=== PATIENT | male | born 1950 | race African-American/Black ===

== ENCOUNTER 2017-08-06 00:57 | Inpatient (IN) | payer OTHER ==
--- NOTE | 2017-07-21 13:11 | History & Physical Pre-Op ---
Mariajose Daniel 07/21/17 1306: General Information and HPI MD Statement: I have seen and personally examined FERNANDO VIRGEN and documented this H&P. The patient is a 66 year old M who presented with a patient stated chief complaint of LBP, radiating to left buttock, hip, and left foot with numbness/ tingling/weakness. Source of Information: patient, old records Exam Limitations: no limitations History of Present Illness: Fernando is a 66-year-old gentleman who is complaining of progressively worsening low back pain, radiating to his left buttock, left hip, and into his left foot with associated numbness/tingling, and weakness in his lower extremities. He does occasionally experience a cramp in his right lower extremity which he describes as "locking up". He states these are infrequent. Fernando describes his pain as a 6-7/10 in intensity with an occasional 10/10 in intensity. He does admit to nocturia and decreased stream but no obvious incontinence or loss of bowel or bladder sensation. He does have difficulty sleeping due to his discomfort. Fernando's recent imaging shows severe foraminal and central stenosis from L2-S1, worse at L3-4 and L4-5 with a ganglion cyst due to facet arthropathy. Due to the fact that Fernando has progressively worsening pain and weakness in his lower extremities, he wants nothing more to do with nonsurgical treatment. He has been consented for a revision posterior lumbar decompression and fusion L2-S1 with instrumentation and iliac crest bone grafting on August 06, 2017. Allergies/Medications Allergies: Coded Allergies: No Known Allergies (08/05/17) Home Med list Acetaminophen (Tylenol Extra Strength) 500 MG TABLET 1 TAB PO TID PRN pain ( Reported) Hydrochlorothiazide 25 MG TABLET 1 TAB PO DAILY HTN (Reported) Oxycodone HCl 10 MG TABLET 1 TAB PO BID PAIN (Reported) Compliance With Home Meds: GOOD Past History Medical History Blood Transfusion Hx: No Neurological: NONE EENT: NONE Cardiovascular: hypertension Respiratory: NONE Gastrointestinal: NONE Hepatic: NONE Renal: benign prost hyperplasia, neurogenic bladder (suspected) Musculoskeletal: chronic back pain, disk herniation, degen joint disease, osteoarthritis, sciatica, spinal stenosis Psychiatric: chronic pain disorder Endocrine: NONE Blood Disorders: NONE Cancer(s): NONE DIRECTOR OF SAFETY/Reproductive: NONE Isolation History: Standard Pneumonia Vaccine: 02/26/15 Influenza Vaccine: 02/27/15 Surgical History Pertinent Surgical History: laminectomy, spinal fusion, s/p Rev. PLDF left L3-S1 with IC[facility] 02/2015, s/p ACDF C5-7 2011, s/p PLDF L3-S1 with ICBG 2011 Past Family/Social History Family History Relations & Conditions if any MOTHER (spinal stenosis). , Age 80. FATHER (Alive and Well). Age 90. Psychosocial History Where Do You Live? Home Who Do You Live With? self Services at Home None Primary Language: Yakut Smoking Status: Light Tobacco Smoker (2-3 cig/day) ETOH Use: occasional use (Guinness Allison) Illicit Drug Use: marijuana Other Social History: with children -Renetta Employment History Employment: Disability Profession/Employer: [employer] Review of Systems Review of Systems: Remarkable for the above complaints. Exam & Diagnostic Data Last 24 Hrs of Vital Signs/I&O Height: 5' 7" Weight: 135lbs. Physical Exam General Appearance Alert, Oriented X3, Cooperative, No Acute Distress Skin No Rashes, No Breakdown, No Significant Lesion HEENT Atraumatic, PERRLA, EOMI, Mucous Membr. moist/pink Neck Supple, No JVD, No thryomegaly, +2 Carotid Pulse wo Bruit Lymphatic Cervical nl Cardiovascular Regular Rate, Normal S1, Normal S2, No Murmurs Lungs Clear to Auscultation Abdomen Normal Bowel Sounds, Soft, No Tenderness Neurological sluggish left patellar reflex, atrophy of left quad and gastroc, - SLR Extremities No Clubbing, No Cyanosis, No Edema, Normal Pulses Vascular Normal Pulses Assessment/Plan Assessment/Plan: Assessment: Severe spinal stenosis L2-S1, worse at L3-4 and L4-5 with a ganglion cyst due to facet arthropathy. Plan: Fernando is scheduled for a revision posterior lumbar decompression and fusion L2-S1 with instrumentation and iliac crest bone grafting on 08/06/2017. We discussed the procedure in full detail as well as the pre-and postoperative course, follow-up care, and anticipated recovery. We also discussed the do's and don'ts and postoperative discharge instructions. We discussed the benefits, alternatives, and risks, not to exclude, , paralysis, infection, bleeding, continued pain, failure of the surgery, need for future surgery, DVT, vascular injury, CSF leak, etc., and given these risks, he still wishes to proceed. We have referred Fernando back to Dr. Gill, his primary care physician for preoperative clearance. Any changes in this patient's plan is based on this patient's outpatient clinical presentation. As Ranked By This Provider Problem List: 1. Hypertension Copies To: Marlon BOLDEN,Bowen Attending MD Review Statement Attending Statement Attending MD Statement: examined this patient, discuss w/resident/PA/BDR, agreed w/resident/PA/BDR, reviewed images
[~2017-08-06] VITALS: Ht 170.2 cm; Wt 63.5 kg
[~2017-08-06 00:57] MED LIST: ADVIL200 MG PO; HYDROCHLOROTHIA25 M1 PO; HYDRODIURIL 2525 MG PO; OXYCODONE HCL10 M2 PO; OXYCODONE HCL15 MG PO; OXYCODONE HYDRO10 M1 PO; TYLENOL EXTRA500 M2 PO
--- NOTE | 2017-08-06 15:49 | Patient Discharge Instructions ---
Acute Coronary Syndrome Inclusion Criteria At DC or during hospital stay patient has or had the following: ACS DIAGNOSIS No Discharge Core Measures Meds if any: Prescribed or Continued at Discharge Meds if any: NOT Prescribed or Continued at Discharge Congestive Heart Failure Inclusion Criteria At DC or during hospital stay patient has or had the following: CHF DIAGNOSIS No Discharge Core Measures Meds if any: Prescribed or Continued at Discharge Meds if any: NOT Prescribed or Continued at Discharge Cerebrovascular accident Inclusion Criteria At DC or during hospital stay patient has or had the following: CVA/TIA Diagnosis No Discharge Core Measures Meds if any: Prescribed or Continued at Discharge Meds if any: NOT Prescribed or Continued at Discharge Venous thromboembolism Inclusion Criteria VTE Diagnosis No VTE Type NONE VTE Confirmed by (Test) NONE Discharge Core Measures - Per Current guidelines, there needs to be overlap - treatment for the first 5 days of Warfarin therapy. - If discharged on Warfarin prior to 5 days of - overlap therapy, the patient will need to be - assessed for post discharge needs including - *Post discharge parental anticoagulation - *Warfarin and/or parental anticoagulation education - *Follow up date to check INR post discharge At least 5 days overlap therapy as Inpatient No Meds if any: Prescribed or Continued at Discharge Note: Overlap Therapy is Warfarin and Anticoagulant Meds if any: NOT Prescribed or Continued at Discharge
[2017-08-06] MEDS ORDERED: DULCOLAX10 M1 RC (15:54)
[2017-08-06] MEDS ORDERED: OXYCONTIN10 M1 PO (15:54)
[2017-08-06] MEDS ORDERED: COLACE100 M1 PO (15:54)
[2017-08-06] MEDS ORDERED: MILK OF MA400 MG/52 PO (15:54)
[2017-08-06] MEDS ORDERED: TYLENOL EXTRA500 M2 PO (15:54)
[2017-08-06] MEDS ORDERED: ROXICODONE30 M1 PO (15:54)
[2017-08-06] MEDS ORDERED: VITAMIN D31000 UNI2 PO (15:54)
[2017-08-06] MEDS ORDERED: MULTIVITAMINS1 EAC9 PO (15:54)
[2017-08-06] MEDS ORDERED: OS-CAL 500+D31 EAC1 PO (15:54)
[2017-08-06 15:58] LABS: ABSOLUTE BASOPHIL COUNT 0 /CUMM (0.0-0.2); ABSOLUTE EOSINOPHIL COUNT 0 /CUMM (0.0-0.7); ABSOLUTE GRANULOCYTE CT 9.8 /CUMM (1.4-6.5); ABSOLUTE LYMPH COUNT 0.7 /CUMM (1.2-3.4); ABSOLUTE MONOCYTE COUNT 0 /CUMM (0.10-0.60); BASOPHIL % 0 % (0.0-2.0); EOSINOPHIL % 0.1 % (0-5); GRANULOCYTE % 92.6 % (42.2-75.2); HEMATOCRIT 38.5 % (42-52); MEAN CORPUSCULAR HGB 31.1 PG (27.0-31.0); MEAN CORPUSCULAR HGB CONC 32.7 G/DL (33.0-37.0); MEAN CORPUSCULAR VOLUME 94.9 FL (80.0-94.0); MEAN PLATELET VOLUME 8.4 FL (7.4-10.4); PLATELET COUNT 188 /CUMM (130-400); RBC DISTRIBUTION WIDTH 14.3 % (11.5-14.5); RED BLOOD CELL CT 4.06 /CUMM (4.70-6.10); WHITE BLOOD CELL COUNT 10.5 /CUMM (4.8-10.8)
[2017-08-06 16:10] VITALS: BP 160/100
--- NOTE | 2017-08-06 16:17 | RADIOLOGY REPORT ---
EXAMINATION: XR LUMBAR SPINE, C-arm imaging CLINICAL INFORMATION: L2-S1 laminectomy COMPARISON: None TECHNIQUE: C-arm imaging. Fluoroscopy time: 0 seconds Images: 1 Dose: 0.554 mGy FINDINGS: Lateral spot view over the lower lumbar spine. There is a orthopedic probe pointing to the L4-L5 disc level. Degenerative spondylosis of spine with multilevel disc height narrowing and endplate spurring of the vertebrae. IMPRESSION: Lateral spot view of lumbar spine with marker at L4-L5 disc level.
--- NOTE | 2017-08-06 18:13 | PN- Orthopedic ---
Subjective Subjective: Post op check: No acute post operative events. Patient tolerated procedure well. Is sitting at edge of bed eating dinner with no difficulty presently. Had pain in PACU in the immediate post operative period, responded well to dilaudid. Denies chest pain, shortness of breath and difficulty breathing. Denies nausea and vomitting. Has yet to void. Objective Vital Signs and I&Os Vital Signs Date Time Temp Pulse Resp B/P B/P Pulse O2 O2 Flow FiO2 Mean Ox Delivery Rate 08/06 1610 98.2 57 18 160/100 99 Nasal 2.0L Cannula Intake & Output 08/06 1600 08/06 0800 08/06 0000 08/05 1600 08/05 0800 08/05 0000 Intake Total Output Total Balance Patient 140 lb Weight Physical Exam: General: Alert and oriented x3, no acute distress Cardiac: R RR, s1s2 Pulm: CTA bilaterally, non-labored respiratory effort Abd: Non-tender, non-distended Extremities: Moves all extremities, distal sensation grossly intact. Skin warm and well perfused. Bialteral calves soft and non-tender Surgical site; Lumbar spine, dressing dry and intact. Assessment/Plan Assessment/Plan This is a 66 year old male, POD 0, s/p lumbar discectomy and fusion. PMH signficant for htn and chronic pain Continue home hctz Continue home oxycontin Add prn oxycodone and IV dilauded for breakthrough pain OOB encouraged Incentive spirometry encouraged Ancef for abx ppx Mechanical dvt ppx POC discussed with Mariajose Botello PA-c Core Measures Venous Thromboembolism VTE Risk Factors Surgery No Mechanical VTE Prophylaxis d/t N/A MechProphylax Ordered No VTE Pharm Prophylaxis d/t Surgical Contraindication
[2017-08-06 18:30] VITALS: BP 162/98
[2017-08-06 20:05] VITALS: BP 165/102
[2017-08-06 21:00] VITALS: BP 168/90
[2017-08-06 22:26] VITALS: BP 144/90
[2017-08-07 02:15] VITALS: BP 152/86
[2017-08-07 06:42] VITALS: BP 163/102
--- NOTE | 2017-08-07 08:48 | PN- Orthopedic ---
Subjective Subjective: OOB ambulating with PT without any difficulty Pain is controlled Did not sleep well last night but nothing specific, otherwise without complaints Objective Vital Signs and I&Os Vital Signs Date Time Temp Pulse Resp B/P B/P Pulse O2 O2 Flow FiO2 Mean Ox Delivery Rate 08/07 0642 98.4 60 18 163/102 99 Room Air 08/07 0215 98.4 74 18 152/86 97 Room Air 08/06 2226 98.4 74 20 144/90 98 Room Air 08/06 2100 62 168/90 08/06 2004 98.7 70 20 165/102 98 Room Air 08/06 1830 98.3 102 20 162/98 97 Room Air 08/06 1610 98.2 57 18 160/100 99 Nasal 2.0L Cannula Intake & Output 08/07 0800 08/07 0000 08/06 1600 08/07 0700 08/06 0000 Intake Total 620 800 Output Total 500 550 Balance -500 70 800 Intake, IV 300 300 Intake, Oral 320 500 Output, Urine 500 550 Physical Exam: bp has been running high 160's systolic, low 100's diastolic Pt did not take htn meds pre-op General: alert and oriented times three Chest: clear bilaterally, rrr Abd: soft, good bs Ext: warm, no edema, normosensate, good 5/5 INGRIS BLE, calves nontender bilaterally Wd: dressing changed, lulu intact, no erythema or drainage Assessment/Plan Assessment/Plan This is a 66 year old male, POD 1, s/p lumbar discectomy and fusion. PMH signficant for htn and chronic pain Will review home meds restart all htn medications continue current pain regimen dc planning fu cbc this am pending alps for dvt ppx Core Measures Venous Thromboembolism VTE Risk Factors Surgery No Mechanical VTE Prophylaxis d/t N/A MechProphylax Ordered No VTE Pharm Prophylaxis d/t Surgical Contraindication
[2017-08-07 09:05] LABS: ABSOLUTE BASOPHIL COUNT 0 /CUMM (0.0-0.2); ABSOLUTE EOSINOPHIL COUNT 0 /CUMM (0.0-0.7); ABSOLUTE GRANULOCYTE CT 12.9 /CUMM (1.4-6.5); ABSOLUTE LYMPH COUNT 1.1 /CUMM (1.2-3.4); ABSOLUTE MONOCYTE COUNT 0.8 /CUMM (0.10-0.60); BASOPHIL % 0 % (0.0-2.0); EOSINOPHIL % 0 % (0-5); GRANULOCYTE % 87.4 % (42.2-75.2); HEMATOCRIT 34.7 % (42-52); MEAN CORPUSCULAR HGB 31.6 PG (27.0-31.0); MEAN CORPUSCULAR HGB CONC 33.7 G/DL (33.0-37.0); MEAN CORPUSCULAR VOLUME 93.7 FL (80.0-94.0); PLATELET COUNT 189 /CUMM (130-400); RBC DISTRIBUTION WIDTH 14.2 % (11.5-14.5); WHITE BLOOD CELL COUNT 14.8 /CUMM (4.8-10.8)
[2017-08-07] MEDS ORDERED: VASOTEC10 MG PO (10:16)
[2017-08-07] MEDS ORDERED: ENALAPRIL MALEA20 M1 PO (10:17)
[2017-08-07 14:26] VITALS: BP 162/98
--- NOTE | 2017-08-07 14:31 | PN- Orthopedic ---
Subjective Subjective: Patient c/o expected postop incisional pain. No preop left leg pain and no new radicular symptoms. Tingling in left foot resolved. Patient ambulated with PT. Robb. po. No headaches or dizziness. No fever/chills. Voiding without difficulty. +flatus. Review of Systems: Remarkable for the above complaints. Objective Vital Signs and I&Os Vital Signs Date Time Temp Pulse Resp B/P B/P Pulse O2 O2 Flow FiO2 Mean Ox Delivery Rate 08/07 1353 86 162/98 08/07 0642 98.4 60 18 163/102 99 Room Air 08/07 0215 98.4 74 18 152/86 97 Room Air 08/06 2226 98.4 74 20 144/90 98 Room Air 08/06 2100 62 168/90 08/06 2004 98.7 70 20 165/102 98 Room Air 08/06 1830 98.3 102 20 162/98 97 Room Air 08/06 1610 98.2 57 18 160/100 99 Nasal 2.0L Cannula Intake & Output 08/07 1600 08/07 0800 08/07 0000 08/06 1600 08/06 0800 08/06 0000 Intake Total 620 800 Output Total 500 550 Balance -500 70 800 Intake, IV 300 300 Intake, Oral 320 500 Output, Urine 500 550 Physical Exam General Appearance: well developed/nourished, no apparent distress, alert, awake Respiratory: normal breath sounds, no respiratory distress Cardiovascular: regular rate/rhythm Abdomen: normal bowel sounds, soft, non-tender Back: Incision C/D/I. Dressing changed. Neurologic/Psychiatric: Neurovascularly stable with no new or worsening gross motor or sensory loss in nayeli. lower extremities. Skin: intact, normal color, warm/dry Current Medications: Current Medications Sig/Geronimo Start time Last Medication Dose Route Stop Time Status Admin Acetaminophen 650 MG Q4P PRN 08/06 1545 AC PO Bisacodyl 10 MG DAILY NEEDED PRN 08/06 1545 AC MD Calcium 600 MG BID 08/06 2100 AC 08/07 PO 928 Cefazolin Sodium 1,000 MG IQ8 08/06 1600 DC 08/07 IV 08/07 0801 0928 Cefazolin Sodium 2,000 MG ONCE 08/06 0000 DC IV 08/06 2359 Cholecalciferol 1,000 IU DAILY 08/07 0900 AC 08/07 PO 0929 Docusate Sodium 100 MG TID 08/06 2100 AC 08/07 PO 1354 Hydrochlorothiazide 25 MG DAILY 08/07 0900 AC 08/07 PO 0929 Hydromorphone HCl 0.6 MG Q4P PRN 08/06 1545 AC 08/07 IV 0558 Lactated Ringer's 1,000 ML Q10H 08/06 1545 AC 08/07 IV 0940 Lisinopril 20 MG DAILY 08/07 1030 AC 08/07 PO 1353 Magnesium Hydroxide 30 ML Q8P PRN 08/06 1545 AC PO Morphine Sulfate 4 MG .STK-MED ONE 08/06 1554 DC IM 08/06 1555 Morphine Sulfate 4 MG .STK-MED ONE 08/06 1541 DC IM 08/06 1542 Multivitamins 1 TAB DAILY 08/07 0900 AC 08/07 PO 0929 Ondansetron HCl 4 MG Q6P PRN 08/06 1545 AC IV Oxycodone HCl 10 MG Q12 08/06 2100 AC 08/07 PO 0929 Oxycodone HCl 10 MG Q4 HRS NEEDED PRN 08/06 1545 AC 08/07 PO 0219 Oxycodone HCl 20 MG Q4 HRS NEEDED PRN 08/06 1545 AC 08/07 PO 1351 Trimethobenzamide HCl 200 MG Q6P PRN 08/06 1545 AC IM Results Last 48 Hours of Labs: Laboratory Tests 08/07 08/06 0556 1520 Hematology CBC w Diff NO MAN DIFF REQ NO MAN DIFF REQ WBC (4.8 - 10.8 /CUMM) 14.8 H 10.5 RBC (4.70 - 6.10 /CUMM) 3.70 L 4.06 L Hgb (14.0 - 18.0 G/DL) 11.7 L 12.6 L Hct (42 - 52 %) 34.7 L 38.5 L MCV (80.0 - 94.0 FL) 93.7 94.9 H MCH (27.0 - 31.0 PG) 31.6 H 31.1 H MCHC (33.0 - 37.0 G/DL) 33.7 32.7 L RDW (11.5 - 14.5 %) 14.2 14.3 Plt Count (130 - 400 /CUMM) 189 188 MPV (7.4 - 10.4 FL) 9.0 8.4 Gran % (42.2 - 75.2 %) 87.4 H 92.6 H Lymphocytes % (20.5 - 51.1 %) 7.2 L 7.0 L Monocytes % (1.7 - 9.3 %) 5.4 0.3 L Eosinophils % (0 - 5 %) 0 0.1 Basophils % (0.0 - 2.0 %) 0 0 Absolute Granulocytes (1.4 - 6.5 /CUMM) 12.9 H 9.8 H Absolute Lymphocytes (1.2 - 3.4 /CUMM) 1.1 L 0.7 L Absolute Monocytes (0.10 - 0.60 /CUMM) 0.8 H 0 L Absolute Eosinophils (0.0 - 0.7 /CUMM) 0 0 Absolute Basophils (0.0 - 0.2 /CUMM) 0 0 Assessment/Plan Assessment/Plan Assessment: S/p Rev. PLDF L2-S1 with local bone Plan: D/C Home. D/C IV Continue pain medications. Ambulate with walker. Do's and Don'ts explained. Disch. Instr. given. Will F/U as outpatient. Problem List: 1. Hypertension Core Measures Venous Thromboembolism VTE Risk Factors Surgery No Mechanical VTE Prophylaxis d/t N/A MechProphylax Ordered No VTE Pharm Prophylaxis d/t Surgical Contraindication Attending MD Review Statement Attending Statement Attending MD Statement: discuss w/resident/PA/STRUCTURAL STEEL PAINTER, agreed w/resident/PA/STRUCTURAL STEEL PAINTER
--- NOTE | 2017-08-07 15:19 | Surg Short-stay <48hrs Dis Sum ---
Visit Information Visit Dates Admission Date: 08/06/17 Discharge Date: 08/07/2017 Surgical Short Stay DC Summary Admission Diagnosis: Severe spinal stenosis L2-S1, worse at L3-4 and L4-5 with a ganglion cyst due to facet arthropathy. Final Diagnosis: Same, s/p surgery as described Procedure(s): L2-S1 laminectomy fusion - see operative report Summary/Significant Findings: Pt underwent L2-S1 lami/fusion and was brought to the pacu in stable condition. Overnight his pain was managed, On pod 1 he was able to ambulate with PT, he was voiding spontaneously. His bp was noted to be high 160's/100's and he was begun on enalapril. It was noted that he had been on this medication previously but had stopped taking it. He was cleared for discharge to the hotel on 08/07. Condition at Discharge: good Discharge Disposition: home or self care Discharge instructions provided to patient/family: Yes Post discharge follow-up plan: Scheduled appt with Dr read
--- NOTE | 2017-08-17 11:28 | Operative Report ---
Operative/Inv Procedure Report Surgery Date: 08/06/17 Name of Procedure: Inspection of fusion mass, laminectomies, foraminotomies, discectomies L2, L3, L4, L5, S1, neurolysis left L2 nerve root, lateral fusion with local bone L2-S1, use of fluoroscopy. Neuromonitoring. Pre-Operative Diagnosis: Spinal stenosis L2-S1 Post-Operative Diagnosis: Spinal stenosis L2-S1 Estimated Blood Loss: 200 cc Surgeon/Internet Network Specialist: Marlon BOLDEN,Bowen Botello PA-C, Mariajose Anesthesia: general endotracheal tube Monitors: Neuro Operative/Procedure Note Note: After adequate general anesthesia was achieved, the patient was placed in a prone position with all lamberto prominences padded. The back was sterilely prepped and draped. An incision was made utilizing the previous incision right down to the dorsal elements with electrocaudery. A metallic object was placed and fluoroscopy was used to identify the surgical level. After this, the fusion mass was inspected and found to contain multiple levels of nonunion. The highspeed jose daniel was used to decorticate the lateral junction of the lamina at the medial border of the facet joints from L2-3 through L5-S1 on the left. The kerrison and curettes were used to create laminectomies, foraminotomies from L2-3 to L5-S1 and all levels in between on the left. Harvested bone graft was saved during this procedure. the left L2 nerve root was markedly erythematous and a neurolysis was performed, freeing it up as it exited the L2-3 foramen. The wound was copiously irrigated. The lateral region was decorticated and bone graft was packed laterally from L2-S1 after which a closure of the lumbar dorsal fascia was performed with absorbable suture as was the subcutaneous tissue. The skin was closed with lulu. Sterile dressings were applied and the patient was transferred to the stretcher.
== END 2017-08-07 17:00 | DRG 460 ==
LOC: SDA 00:57 → ENRESERV 14:55 → ENTRNSPT 15:53 → EDTRNSPTSTS 15:57 → 2NB 16:07 → CMPTRNSPT 16:11 → ENPENDDIS 08-07 14:17 → ENTRNSPT 08-07 16:38 → EDTRNSPTSTS 08-07 16:40 → EDTRNSPT 08-07 16:40 → 2NB 08-07 17:00 → CMPTRNSPT 08-07 17:26
PROVIDERS: Orthopaedic Surgery Orthopaedic Surgery of the Spine
PROC: 0SG1071 Fusion of 2 or more Lumbar Vertebral Joints with Autologous Tissue Substitute, Posterior Approach, Posterior Column, Open Approach (ICD-10-PCS; principal; 2017-08-06)
PROC: 0SG3071 Fusion of Lumbosacral Joint with Autologous Tissue Substitute, Posterior Approach, Posterior Column, Open Approach (ICD-10-PCS; principal; 2017-08-06)
PROC: 0SB40ZZ Excision of Lumbosacral Disc, Open Approach (ICD-10-PCS; principal; 2017-08-06)
PROC: 4A11X4G Monitoring of Peripheral Nervous Electrical Activity, Intraoperative, External Approach (ICD-10-PCS; principal; 2017-08-06)
PROC: 0SB20ZZ Excision of Lumbar Vertebral Disc, Open Approach (ICD-10-PCS; principal; 2017-08-06)
DX: M48.061 Spinal stenosis, lumbar region without neurogenic claudication (principal); M96.0 Pseudarthrosis after fusion or arthrodesis; M48.07 Spinal stenosis, lumbosacral region; M67.48 Ganglion, other site; I10 Essential (primary) hypertension; F17.210 Nicotine dependence, cigarettes, uncomplicated; G89.29 Other chronic pain; N40.0 Benign prostatic hyperplasia without lower urinary tract symptoms
CPT/HCPCS: 2NBP; 36592; 72020; 87086; 88304; 97116-GO; 97161-GP; 97530-GO; J0131; J0690; J1170; J2405; J3250; J3490; J7120